=== PATIENT | male | born 1995 | race Caucasian/White ===

== ENCOUNTER 2019-01-21 23:27 | Emergency (ER) | payer SELFPAY, OTHER ==
[2019-01-22] MEDS: ONDANSETRON 4 MG INJ IV (01:39)
[2019-01-22] MEDS: morphine 4 MG/ML VIAL IV (01:39)
[2019-01-22 01:54] LABS: ADD MAN DIFF? NO; BASOPHIL # 0.1 10^3/ul (0.0-0.1); BASOPHILS % 0.5 % (0.0-2.0); EOSINOPHILS # 0.3 10^3/ul (0.0-0.5); EOSINOPHILS % 2.8 % (0.0-7.0); HEMATOCRIT 47.8 % (42.0-52.0); LYMPHOCYTES # 4.3 10^3/ul (0.8-2.9); LYMPHOCYTES % 35.5 % (15.0-51.0); MEAN CORPUSCULAR HEMOGLOBIN 28.6 pg (29.0-33.0); MEAN CORPUSCULAR HGB CONC 33.5 g/dl (32.0-37.0); MEAN CORPUSCULAR VOLUME 85.5 fl (82.0-101.0); MEAN PLATELET VOLUME 9.1 fl (7.4-10.4); MONOCYTE # 0.8 10^3/ul (0.3-0.9); MONOCYTES % 6.8 % (0.0-11.0); NEUTROPHIL # 6.5 10^3/ul (1.6-7.5); NEUTROPHILS % 54.1 % (39.0-77.0); PLATELET COUNT 335 10^3/UL (140-415); RED BLOOD COUNT 5.59 10^6/ul (4.70-6.10); RED CELL DISTRIBUTION WIDTH 12.4 % (11.5-14.5)
[2019-01-22 02:11] LABS: ANION GAP 9 (5-13); BLOOD UREA NITROGEN 9 mg/dl (7-20); CALCIUM 9.8 mg/dl (8.4-10.2); CARBON DIOXIDE 26 mmol/L (21-31); CHLORIDE 105 mmol/L (97-110); CREATININE 0.75 mg/dl (0.61-1.24); Estimated GFR > 60 mL/min (>60); GLUCOSE 96 mg/dl (70-220); SODIUM 140 mmol/L (135-144)
[2019-01-22 02:14] LABS: INR 0.89; PARTIAL THROMBOPLASTIN TIME 32.4 Sec (23.0-35.0); PROTIME 12.1 Sec (11.9-14.9); PT RATIO 0.9
[2019-01-22 02:25] LABS: TROPONIN-I < 0.012 ng/ml (0.000-0.120)
[2019-01-22] MEDS: LABETALOL HCL 20MG INJ IV (02:33)
[2019-01-22] MEDS: LORAZEPAM 2 MG INJ IV (03:38)
== END 2019-01-22 04:24 | disposition home or self-care (01) ==
LOC: E/R 23:27
DX: R51 Headache (principal); I10 Essential (primary) hypertension; J45.909 Unspecified asthma, uncomplicated; R11.2 Nausea with vomiting, unspecified
CPT/HCPCS: 36415; 70450; 71045; 80048; 84484; 85025; 85610; 85730; 96374; 96375; 99285-25

== ENCOUNTER 2019-01-31 23:53 | Emergency (ER) | payer SELFPAY ==
[2019-02-01] MEDS: KETOROLAC 30 MG INJ IM (01:16)
== END 2019-02-01 01:49 | disposition home or self-care (01) ==
LOC: E/R 02-01 01:49
DX: R07.89 Other chest pain (principal); J45.909 Unspecified asthma, uncomplicated; I10 Essential (primary) hypertension
CPT/HCPCS: 71045; 93005; 96372; 99284-25